=== PATIENT | male | born 1975 | race Caucasian/White ===

== ENCOUNTER → 2021-10-10 | Outpatient (CLI) | payer OTHER ==
[2021-10-10 14:54] LABS: Basophils # (A) 0.03 X 10*3/uL (0.00-0.10); Basophils % (A) 0.3 %; Eosinophils # (A) 0.12 X 10*3/uL (0.04-0.35); HCT 46.2 % (39.6-50.0); HGB 15.3 g/dL (13.0-17.0); Immature Grans, Automated 0.4 %; Lymphocytes # (A) 1.51 X 10*3/uL (0.90-5.00); MCH 29.3 pg (27.0-32.0); MCHC 33.1 g/dL (32.0-37.0); MCV 88.5 fL (80.0-97.0); Mean Platelet Volume 9.1 fL (9.5-12.2); Monocytes # (A) 0.92 X 10*3/uL (0.20-1.00); Monocytes % (A) 7.9 %; NRBC Per 100 WBC 0 /100 WBCS (0.0-0.0); Neutrophils % (A) 77.4 %; Platelet Count 277 X 10*3/uL (140-440); RBC 5.22 X 10*6/uL (4.40-5.60); RDW 13.2 % (11.5-14.5); WBC 11.63 X 10*3/uL (4.50-10.00)
== END | disposition home or self-care (01) ==
LOC: LABPAT 10:23
PROVIDERS: ATTEND Surgery
DX: Z01.812 Encounter for preprocedural laboratory examination (principal); K57.33 Diverticulitis of large intestine without perforation or abscess with bleeding
CPT/HCPCS: 36415; 85025

== ENCOUNTER 2021-10-16 08:11 | Day surgery (SDC) | payer OTHER ==
[2021-10-14 12:14] VITALS: BMI 20.7
[~2021-10-16 08:11] MED LIST: LACTATED RINGERS 1,000 ML IV SCH; LIDOCAINE 1% (10MG/ML) FOR IV START INTRADERMA PRN; MIDAZOLAM 2 MG/2 ML VIAL IV PRN
[2021-10-16 09:30] VITALS: RESP 16; TEMP 97.5
[2021-10-16] MEDS ORDERED: PROPOFOL 10 MG/ML 20 ML VIAL IV ONE (10:02)
--- NOTE | 2021-10-16 10:02 | P.GSHP ---
History of Present Illness H&P Date: 10/16/21 Chief Complaint: History of perforated diverticulitis This a 46-year-old male who presents today for colonoscopy. Patient's. History of diverticulitis with abscess. He is scheduled undergo low anterior section tomorrow. Past Medical History Past Medical History: Musculoskeletal Disorder Additional Past Medical History / Comment(s): recent adm. for diverticulitis- finished A/B's, has herniated lumbar disc History of Any Multi-Drug Resistant Organisms: None Reported Past Surgical History: No Surgical Hx Reported Past Anesthesia/Blood Transfusion Reactions: No Reported Reaction Smoking Status: Current every day smoker - Past Family History Mother Family Medical History: No Reported History Medications and Allergies Home Medications Medication Instructions Recorded Confirmed Type No Known Home Medications 10/14/21 10/16/21 History Allergies Allergy/AdvReac Type Severity Reaction Status Date / Time No Known Allergies Allergy Verified 10/16/21 09:18 Surgical - Exam Vital Signs Temp Pulse Resp BP Pulse Ox 97.5 F L 99 16 142/76 98 10/16/21 09:24 10/16/21 09:24 10/16/21 09:24 10/16/21 09:24 10/16/21 09:24 - General well developed, well nourished, no distress - Eyes PERRL - ENT normal pinna - Neck no masses - Respiratory normal expansion - Cardiovascular Rhythm: regular - Abdomen Abdomen: soft, non tender Assessment and Plan Assessment: History of perforated diverticula is. We'll perform colonoscopy.
--- NOTE | 2021-10-16 10:15 | P.OP ---
Date of Procedure: 10/16/21 Preoperative Diagnosis: History of perforated diverticulitis Postoperative Diagnosis: Diverticulosis Rectal polyp Possible stricture sigmoid colon Procedure(s) Performed: colonoscopy Anesthesia: MAC Surgeon: Horacio Hutchinson Pathology: other (Rectal polyp) Condition: stable Disposition: PACU Description of Procedure: The patient's placed on the endoscopy table lateral position. He received IV sedation. Digital rectal exam was performed. There were some minimal internal hemorrhoids. Flexible colonoscope was then placed patient anus passed with colon. In the sigmoid colon the colon appeared to be very stiff. The colon could not be expanded with of air. This is presumed the area the previous diverticulitis. Scope was not advanced due to possible injury of the colon. Scope was withdrawn. The rectum there was a small polyp seen was removed with a cold forcep. Scope was withdrawn for patient.
[2021-10-16 10:33] VITALS: BP 129/78; PULSE 76
== END 2021-10-16 10:59 | disposition home or self-care (01) ==
LOC: ORWHC2ENDO 08:11
PROVIDERS: ATTEND Surgery
DX: K62.1 Rectal polyp (principal); K64.8 Other hemorrhoids; K57.30 Diverticulosis of large intestine without perforation or abscess without bleeding; Z87.19 Personal history of other diseases of the digestive system; F17.200 Nicotine dependence, unspecified, uncomplicated
CPT/HCPCS: 45380; 88305; J2704

== ENCOUNTER 2021-10-17 08:55 | Inpatient (IN) | payer OTHER ==
[2021-10-14 11:12] VITALS: BMI 20.7
[~2021-10-17 08:55] MED LIST changes: +ACETAMINOPHEN TAB 500 MG TAB PO PRN; +DEXAMETHASONE SOD PHOSPHATE 4 MG/ML 1 ML VIAL IV ONE; +HEPARIN SODIUM,PORCINE/PF 5,000 UNIT/0.5 ML SYRINGE SQ PRN; +HYDROmorphone 0.5 MG/0.5 ML SYRINGE IVP PRN; +ONDANSETRON 4 MG/2 ML VIAL IVP ONE; +metroNIDAZOLE-NS PMX 500 MG in SALINE 1 100ML.BAG IVPB PRN
[2021-10-17 09:40] LABS: Glucose,Whole Blood 62 mg/dL (75-99)
[2021-10-17 09:52] LABS: ALT 22 U/L (4-49); AST 28 U/L (17-59); African American GFR (CKD) >90 (>60 ml/min/1.73 sqM); Albumin 4.5 g/dL (3.5-5.0); Alkaline Phosphatase 54 U/L (38-126); Anion Gap 8 mmol/L; Blood Urea Nitrogen 7 mg/dL (9-20); Calcium 9.5 mg/dL (8.4-10.2); Carbon Dioxide 28 mmol/L (22-30); Chloride 103 mmol/L (98-107); Glucose 62 mg/dL (74-99); Non-African American GFR(CKD) >90 (>60 ml/min/1.73 sqM); Potassium 4.2 mmol/L (3.5-5.1); Sodium 139 mmol/L (137-145); Total Bilirubin 0.8 mg/dL (0.2-1.3); Total Protein 8.1 g/dL (6.3-8.2)
[2021-10-17] MEDS ORDERED: MIDAZOLAM 2 MG/2 ML VIAL IVP ONE (09:53)
--- NOTE | 2021-10-17 10:16 | P.ANPRN ---
Procedure Note - Anesthesia - Epidural/Spinal Epidural Continuous Time Out Performed: Yes Date of Procedure: 10/17/21 Procedure Start Time: 09:52 Procedure Stop Time: 10:02 Location of Patient: PreOp Indication: Acute Post-Operative Pain, Requested by Surgeon Sedation Type: Sedate with meaningful contact maintained Preparation: Sterile Dressing Number of Attempts: 1 Position: Sitting Catheter Depth at Skin (cm): 11 Catheter: Indwelling Needle Guage: 18 (20G catheter threaded through the needle) Injectate: Test Dose Lidocaine1.5% w/1:200,000 epi (2 cc) Narrative: NURIS at 4cms, catheter 11 cms Blood Aspirated: No Pain Paresthesia on Injection Noted: No Events: Uneventful and Well Tolerated
[2021-10-17] MEDS ORDERED: NALOXONE 0.4 MG/ML 1 ML VIAL IV PRN (10:17)
--- NOTE | 2021-10-17 10:40 | P.GSHP ---
History of Present Illness H&P Date: 10/17/21 Chief Complaint: History of diverticulitis This a 46-year-old male presents today for low anterior resection. Patient's previous history of diverticulitis with abscess. Patient aware the risks surgery including possible colostomy, wound infection and bleeding. Past Medical History Past Medical History: Musculoskeletal Disorder Additional Past Medical History / Comment(s): recent adm. for diverticulitis-fi nished A/B's, has herniated lumbar disc History of Any Multi-Drug Resistant Organisms: None Reported Past Surgical History: No Surgical Hx Reported Past Anesthesia/Blood Transfusion Reactions: No Reported Reaction Smoking Status: Current every day smoker - Past Family History Mother Family Medical History: No Reported History Medications and Allergies Home Medications Medication Instructions Recorded Confirmed Type No Known Home Medications 10/14/21 10/16/21 History Allergies Allergy/AdvReac Type Severity Reaction Status Date / Time No Known Allergies Allergy Verified 10/17/21 09:13 Surgical - Exam Vital Signs Temp Pulse Resp BP Pulse Ox 97.8 F 85 20 131/80 100 10/17/21 09:17 10/17/21 09:17 10/17/21 09:17 10/17/21 09:17 10/17/21 09:17 - General well developed, well nourished, no distress - Eyes PERRL - ENT normal pinna - Neck no masses - Respiratory normal expansion - Cardiovascular Rhythm: regular - Abdomen Abdomen: soft, non tender Results - Labs 10/17/21 09:30 Abnormal Lab Results - Last 24 Hours (Table) 10/17/21 10/17/21 Range/Units 09:30 09:35 BUN 7 L (9-20) mg/dL Glucose 62 L (74-99) mg/dL POC Glucose (mg/dL) 62 L (75-99) mg/dL Diabetes panel 10/17/21 Range/Units 09:30 Sodium 139 (137-145) mmol/L Potassium 4.2 (3.5-5.1) mmol/L Chloride 103 (98-107) mmol/L Carbon Dioxide 28 (22-30) mmol/L BUN 7 L (9-20) mg/dL Creatinine 0.80 (0.66-1.25) mg/dL Glucose 62 L (74-99) mg/dL Calcium 9.5 (8.4-10.2) mg/dL AST 28 (17-59) U/L ALT 22 (4-49) U/L Alkaline Phosphatase 54 (38-126) U/L Total Protein 8.1 (6.3-8.2) g/dL Albumin 4.5 (3.5-5.0) g/dL Calcium panel 10/17/21 Range/Units 09:30 Calcium 9.5 (8.4-10.2) mg/dL Albumin 4.5 (3.5-5.0) g/dL Pituitary panel 10/17/21 Range/Units 09:30 Sodium 139 (137-145) mmol/L Potassium 4.2 (3.5-5.1) mmol/L Chloride 103 (98-107) mmol/L Carbon Dioxide 28 (22-30) mmol/L BUN 7 L (9-20) mg/dL Creatinine 0.80 (0.66-1.25) mg/dL Glucose 62 L (74-99) mg/dL Calcium 9.5 (8.4-10.2) mg/dL Adrenal panel 10/17/21 Range/Units 09:30 Sodium 139 (137-145) mmol/L Potassium 4.2 (3.5-5.1) mmol/L Chloride 103 (98-107) mmol/L Carbon Dioxide 28 (22-30) mmol/L BUN 7 L (9-20) mg/dL Creatinine 0.80 (0.66-1.25) mg/dL Glucose 62 L (74-99) mg/dL Calcium 9.5 (8.4-10.2) mg/dL Total Bilirubin 0.8 (0.2-1.3) mg/dL AST 28 (17-59) U/L ALT 22 (4-49) U/L Alkaline Phosphatase 54 (38-126) U/L Total Protein 8.1 (6.3-8.2) g/dL Albumin 4.5 (3.5-5.0) g/dL Assessment and Plan Assessment: History of diverticulitis. We'll perform a low anterior resection. Patient has been given information on smoking cessation prior to surgery.
[2021-10-17] MEDS ORDERED: LIDOCAINE 1% INJ 10MG/ML (20 ML MDV) ONE (11:03)
[2021-10-17] MEDS ORDERED: fentaNYL (PF) 50 MCG/ML 2 ML AMP ONE (11:03)
[2021-10-17] MEDS ORDERED: PROPOFOL 10 MG/ML 20 ML VIAL IV ONE (11:03)
[2021-10-17] MEDS ORDERED: MIDAZOLAM 2 MG/2 ML VIAL ONE (11:03)
[2021-10-17] MEDS ORDERED: ROCURONIUM 10 MG/ML (5 ML VIAL) IV ONE (11:03)
[2021-10-17] MEDS ORDERED: HYDROmorphone (PF) 1 MG/ML ONE (11:03)
[2021-10-17] MEDS ORDERED: GLYCOPYRROLATE 0.2 MG/ML 2 ML VIAL ONE (11:03)
[2021-10-17] MEDS ORDERED: SUCCINYLCHOLINE CHLORIDE 100 MG/5 ML SYR IV ONE (11:03)
[2021-10-17] MEDS ORDERED: NEOSTIGMINE 1 MG/ML 10 ML VIAL ONE (11:03)
[2021-10-17] MEDS ORDERED: LACTATED RINGERS 1,000 ML IV ONE (11:55)
[2021-10-17] MEDS: ROPIVACAINE 250 MG, HYDROMORPHONE (PF) 5 MG in SODIUM CHLORIDE 0.9% 200 ML EPIDURAL PRN (12:30)
[2021-10-17] MEDS ORDERED: BENZOCAINE/MENTHOL LOZENG 1 EACH LOZENGE MUCOUS MEM PRN (12:31)
[2021-10-17] MEDS ORDERED: KETOROLAC 15 MG/ML 1 ML VIAL IVP PRN (12:31)
[2021-10-17] MEDS ORDERED: ONDANSETRON 4 MG/2 ML VIAL IVP PRN (12:31)
--- NOTE | 2021-10-17 12:31 | P.OP ---
Date of Procedure: 10/17/21 Preoperative Diagnosis: Diverticulitis Postoperative Diagnosis: Diverticulitis Procedure(s) Performed: Low anterior resection Anesthesia: CL[place] Surgeon: Horacio Hutchinson Estimated Blood Loss (ml): 25 Pathology: other (Sigmoid colon) Condition: stable Disposition: PACU Description of Procedure: The patient's placed on the operative table in the supine position. He received general endotracheal tube anesthesia. He was then placed in dorsal 5 position. His abdomen was prepped and draped in sterile fashion. A low midline skin incision was made. The abdomen was entered through the midline. The Bookwalter tract with wound. As explore. The sigmoid colon appeared to be obviously inflamed. The adhesions to the; lysed using sharp dissection. The white line Toldt was divided. The sigmoid colon and left colon were mobilized. At this point an enterotomy was made in the proximal sigmoid colon. The anvil for the EEA stapler was placed into the colon. The colon was then transected and then the cyst spike for the anvil was driven through the proximal staple line. The e nterotomy is closed with 3-0 GI silk suture on the specimen side. Then using the Enseal device the mesentery of the bowel was divided. The rectum was then transected with the contour stapler. Using the EEA stapler the colorectal anastomosis was created. The 25 mm EEA stapler was used. Using a HIDA The anastomosis was checked under air insufflation via a rigid sigmoidoscope. There is no evidence of leakage. The abdomen was irrigated. The fascia was closed with looped #1 PDS suture. Skin was closed leonel.
--- NOTE | 2021-10-17 15:56 | CONS ---
CONSULTATION DATE OF SERVICE: 10/17/2021 REASON FOR CONSULTATION: Advice regarding diverticulitis and other issues, requested by Dr. Hutchinson. HISTORY OF PRESENT ILLNESS: This 46-year-old gentleman with a past medical history of diverticulitis, diverticular abscess, underwent low anterior resection. The patient tolerated the procedure well. The patient had some mild hypoglycemia preoperatively. There is no history of any fever, rigor, chills, headache, loss of consciousness, seizures. Minimal postoperative abdominal pain is reported. PAST MEDICAL HISTORY: Diverticulitis, diverticular abscess. MEDICATIONS: None. ALLERGIES: NONE. FAMILY HISTORY: No history of heart disease or strokes in the family. SOCIAL HISTORY: Occasional alcohol. History of smoking. History of THC. REVIEW OF SYSTEMS: Fourteen-point review of systems negative except as mentioned earlier. PHYSICAL EXAMINATION: Pulse is 67, blood pressure 128/60, respirations 16, temperature normal. HEENT: Conjunctivae normal. Oral mucosa moist. NECK: No jugular venous distention. CARDIOVASCULAR: S1, S2 muffled. RESPIRATION: Breath sounds diminished at the bases. A few scattered rhonchi. ABDOMEN: Soft. Status post surgery. LEGS: No edema. No swelling. NERVOUS SYSTEM: No focal deficit. SKIN: No ulcer, rash, bleeding. JOINTS: No active deforming arthropathy. LABS: Reviewed. ASSESSMENT: 1. Status post low anterior resection for diverticulitis. 2. Mild hypoglycemia. 3. History of nicotine dependence. RECOMMENDATIONS AND DISCUSSION: In this 46-year-old gentleman who presented after surgery, at this time I recommend to continue current medications. DVT prophylaxis. Incentive spirometry. Pain management. Proton pump inhibitors. I would also recommend continuing with D5 half- normal and repeat labs in the morning. Will follow the patient closely with you. Thank you, Dr. Hutchinson. MMODL / IJN: [id number] /
[2021-10-17] MEDS: NICOTINE 21MG/24HR PATCH TRANSDERM SCH (17:43)
[2021-10-17] MEDS: D5-0.45% NACL WITH KCL 20MEQ/L 1,000 ML IV SCH (17:43)
[2021-10-17] MEDS: HEPARIN SODIUM,PORCINE/PF 5,000 UNIT/0.5 ML SYRINGE SQ SCH (17:43)
[2021-10-17] MEDS: FAMOTIDINE 20 MG/2 ML VIAL IV SCH (21:51)
[2021-10-17] MEDS: TEMAZEPAM 15 MG CAP PO SCH (21:52)
[2021-10-18] MEDS: D5-0.45% NACL WITH KCL 20MEQ/L 1,000 ML IV SCH ×4 (02:40→23:21)
[2021-10-18] MEDS: HEPARIN SODIUM,PORCINE/PF 5,000 UNIT/0.5 ML SYRINGE SQ SCH ×4 (02:41→23:20)
[2021-10-18] MEDS: FAMOTIDINE 20 MG/2 ML VIAL IV SCH ×2 (08:06→20:47)
[2021-10-18] MEDS: ALVIMOPAN 12 MG CAPSULE PO SCH ×2 (08:06→20:46)
[2021-10-18] MEDS: NICOTINE 21MG/24HR PATCH TRANSDERM SCH (08:06)
[2021-10-18 12:22] LABS: Basophils # (A) 0.02 X 10*3/uL (0.00-0.10); Basophils % (A) 0.2 %; Eosinophils # (A) 0.02 X 10*3/uL (0.04-0.35); Eosinophils % (A) 0.2 %; HCT 44.9 % (39.6-50.0); HGB 14.6 g/dL (13.0-17.0); Immature Grans, Automated 0.3 %; Lymphocytes # (A) 1.59 X 10*3/uL (0.90-5.00); Lymphocytes % (A) 12.2 %; MCH 29.6 pg (27.0-32.0); MCHC 32.5 g/dL (32.0-37.0); MCV 90.9 fL (80.0-97.0); Mean Platelet Volume 9.4 fL (9.5-12.2); Monocytes # (A) 0.86 X 10*3/uL (0.20-1.00); Monocytes % (A) 6.6 %; NRBC Per 100 WBC 0 /100 WBCS (0.0-0.0); Neutrophils # (A) 10.51 X 10*3/uL (1.80-7.70); Neutrophils % (A) 80.5 %; Platelet Count 279 X 10*3/uL (140-440); RBC 4.94 X 10*6/uL (4.40-5.60); RDW 13.4 % (11.5-14.5); WBC 13.04 X 10*3/uL (4.50-10.00)
[2021-10-18 12:29] LABS: African American GFR (CKD) 130.5 (60.0-200.0); Anion Gap 12.7 mmol/L (10.00-18.00); BUN/Creat Ratio 7.32 Ratio (12.00-20.00); Blood Urea Nitrogen 5.1 mg/dL (9.0-27.0); Carbon Dioxide 25.7 mmol/L (20.0-27.5); Non-African American GFR(CKD) 112.6 (60.0-200.0); Potassium 4.3 mmol/L (3.5-5.5)
--- NOTE | 2021-10-18 12:56 | P.PN ---
Subjective Progress Note Date: 10/18/21 CHIEF COMPLAINT: Sigmoid diverticulitis HISTORY OF PRESENT ILLNESS: The patient is a 46-year-old male admitted secondary to sigmoid diverticulitis. He is status post low anterior resection 10/17/2021. No complaints. "I'm afraid to drink too much and have to run to the bathroom." No flatus. No bowel movements. SCDs are present. Pain is well controlled. He has a meza and epidural. ROS: No reports of nausea and vomiting. No bowel movements. No fevers or chills. No new chest pain. No productive sputum PHYSICAL EXAM: VITAL SIGNS: Reviewed CONSTITUTIONAL: Well developed and in no acute distress. EYES: Conjuctivae without sclera icterus. Extraocular movements grossly intact. HEAD, EARS, NOSE, THROAT: Moist buccal mucosa. Head is atraumatic, normocephalic. Hears conversational speech. No nasal drainage. RESPIRATORY: Non-labored respirations and equal bilateral excursions. CARDIOVASCULAR: Palpable 2+ radial pulses. ABDOMEN: Dressing intact. MUSCULOSKELETAL: No gross deformity of the lower extremities noted. No clubbing. No cyanosis. SKIN: Good skin turgor. Well perfused. NEUROLOGIC: Cranial nerves II through XII grossly intact. No focal or lateralizing signs. PSYCH: Appropriate affect. Alert and oriented to person, place and time. CLINICAL LABS: Reviewed. WBC elevated over 13,000, expected postsurgical response. ASSESSMENT: 1. Sigmoid diverticulitis PLAN: 1. Pending bowel function 2. Continue epidural 3. Ambulation encouraged. 4. Advance diet pending bowel function. Objective - Vital Signs Vital signs: Vital Signs Temp 97.7 F 10/18/21 08:00 Pulse 54 L 10/18/21 08:00 Resp 18 10/18/21 08:00 BP 118/73 10/18/21 08:00 Pulse Ox 100 10/18/21 08:00 Intake & Output 10/17/21 10/18/21 10/18/21 18:59 06:59 18:59 Intake Total 1613.767 Output Total 185 2750 Balance 1428.767 -2750 Weight 61.7 kg Intake: IV 1350 Intake, IV Titration 263.767 Amount D5-0.45% NaCl with KCl 250 20Meq/l 1,000 ml @ 125 mls/hr IV .Q8H ROSIBEL Rx#: [id number] Ropivacaine 250 mg 13.767 Hydromorphone (Pf) 5 mg In Sodium Chloride 0.9% 200 ml @ Per Protocol EPIDURAL .Q0M PRN Rx#: [id number] Output: Urine 160 2750 Estimated Blood Loss 25 Other: Voiding Method Indwelling Catheter Indwelling Catheter - Labs CBC & Chem 7: 10/18/21 09:00 10/18/21 09:00 Labs: Abnormal Lab Results - Last 24 Hours (Table) 10/18/21 10/18/21 Range/Units 09:00 09:00 WBC 13.04 H (4.50-10.00) X 10*3/uL MPV 9.4 L (9.5-12.2) fL Neutrophils # 10.51 H (1.80-7.70) X 10*3/uL Eosinophils # 0.02 L (0.04-0.35) X 10*3/uL BUN 5.1 L (9.0-27.0) mg/dL BUN/Creatinine Ratio 7.32 L (12.00-20.00) Ratio Glucose 117 H (70-110) mg/dL Assessment and Plan (1) Status post colectomy Current Visit: Yes Status: Acute Code(s): Z90.49 - ACQUIRED ABSENCE OF OTHER SPECIFIED PARTS OF DIGESTIVE TRACT SNOMED Code(s): 597674809 (2) Diverticulitis of intestine with abscess Current Visit: No Status: Acute Code(s): K57.80 - DVTRCLI OF INTEST, PART UNSP, W PERF AND ABSCESS W/O BLEED SNOMED Code(s): 017983407
[2021-10-18] MEDS: ROPIVACAINE 250 MG, HYDROMORPHONE (PF) 5 MG in SODIUM CHLORIDE 0.9% 200 ML EPIDURAL PRN (14:16)
--- NOTE | 2021-10-18 16:52 | PN ---
PROGRESS NOTE DATE OF SERVICE: 10/18/2021 This 46-year-old gentleman who was admitted after low anterior resection is improving significantly. No chest pain. No palpitations. No fever. Patient still has epidural as well as Gutierrez catheter. PHYSICAL EXAMINATION: Alert and oriented x3. Pulse 52, blood pressure 120/72, respiration 18. CHEST: Clear to auscultation. CARDIOVASCULAR: S1, S2 muffled. ABDOMEN: Soft. Status post surgery. LABS: WBC 13.4. Other labs are reviewed. ASSESSMENT: 1. Status post low anterior resection for diverticulitis. 2. Mild hypoglycemia, improved. 3. History of nicotine dependence. RECOMMENDATIONS AND DISCUSSION: I recommend to continue current medications, continue with the monitoring, symptomatic treatment. Otherwise, closely follow with Surgery. Further recommendations to follow. MMODL / IJN: [id number] /
[2021-10-18] MEDS: TEMAZEPAM 15 MG CAP PO SCH (20:47)
--- NOTE | 2021-10-18 20:58 | P.PN ---
Progress Note - Text 10/18/21 1813 46-year-old male status post low anterior resection by Dr. Hutchinson. Patient has an epidural catheter with the solution running at 8 mL an hour with a VAS of 0 at rest. No motor or sensory deficit noted. Plan to continue epidural infusion
[2021-10-19] MEDS: D5-0.45% NACL WITH KCL 20MEQ/L 1,000 ML IV SCH ×3 (05:52→21:34)
[2021-10-19] MEDS: ALVIMOPAN 12 MG CAPSULE PO SCH ×2 (07:20→21:35)
[2021-10-19] MEDS: HEPARIN SODIUM,PORCINE/PF 5,000 UNIT/0.5 ML SYRINGE SQ SCH ×2 (07:20→21:35)
[2021-10-19] MEDS: NICOTINE 21MG/24HR PATCH TRANSDERM SCH (07:20)
[2021-10-19] MEDS: FAMOTIDINE 20 MG/2 ML VIAL IV SCH ×2 (08:45→21:35)
[2021-10-19] MEDS ORDERED: TAMSULOSIN 0.4 MG CAP.ER.24H PO STA (12:17)
--- NOTE | 2021-10-19 12:20 | P.PN ---
Subjective Progress Note Date: 10/19/21 Principal diagnosis: Reviewed with patient and family pain options. Scheduled non-narcotic pain management initiated with toradol and tylenol. Scheduled simethicone ordered for gas. Ambulation encouraged. May remove meza and epidural per patient request. Repeat CBC for am. Flomax for urinary retention prevention started. Disposition in 48 hrs. Continue clear liquid diet. Patient does report flatus and pending bowel movement. He had pain after coughing today. Discharge plannig reviewed including lifting restrictions for 4 weeks, avoiding seeds, increased protein intake for optimal recovery and use of anti-microbial soap. Objective - Vital Signs Vital signs: Vital Signs Temp 98.2 F 10/19/21 07:57 Pulse 72 10/19/21 07:57 Resp 18 10/19/21 07:57 BP 105/58 10/19/21 07:57 Pulse Ox 95 10/19/21 07:57 Intake & Output 10/18/21 10/19/21 10/19/21 18:59 06:59 18:59 Intake Total 164.4 Output Total 1800 1800 Balance -1635.6 -1800 Intake: Intake, IV Titration 164.4 Amount Ropivacaine 250 mg 164.4 Hydromorphone (Pf) 5 mg In Sodium Chloride 0.9% 200 ml @ Per Protocol EPIDURAL .Q0M PRN Rx#: [id number] Output: Urine 1800 1800 Other: Voiding Method Indwelling Catheter Indwelling Catheter Indwelling Catheter - Labs CBC & Chem 7: 10/18/21 09:00 10/18/21 09:00 Labs: Abnormal Lab Results - Last 24 Hours (Table) 10/18/21 10/18/21 Range/Units 09:00 09:00 WBC 13.04 H (4.50-10.00) X 10*3/uL MPV 9.4 L (9.5-12.2) fL Neutrophils # 10.51 H (1.80-7.70) X 10*3/uL Eosinophils # 0.02 L (0.04-0.35) X 10*3/uL BUN 5.1 L (9.0-27.0) mg/dL BUN/Creatinine Ratio 7.32 L (12.00-20.00) Ratio Glucose 117 H (70-110) mg/dL Assessment and Plan (1) Status post colectomy Current Visit: Yes Status: Acute Code(s): Z90.49 - ACQUIRED ABSENCE OF OTHER SPECIFIED PARTS OF DIGESTIVE TRACT SNOMED Code(s): 323781044 (2) Diverticulitis of intestine with abscess Current Visit: No Status: Acute Code(s): K57.80 - DVTRCLI OF INTEST, PART UNSP, W PERF AND ABSCESS W/O BLEED SNOMED Code(s): 432773303
[2021-10-19] MEDS: ACETAMINOPHEN TAB 500 MG TAB PO SCH ×3 (13:24→23:36)
[2021-10-19] MEDS: KETOROLAC 15 MG/ML 1 ML VIAL IVP SCH ×3 (13:25→23:36)
[2021-10-19] MEDS: SIMETHICONE 40 MG/0.6 ML DROPS 2,000 MG/30 ML BOTTLE PO SCH ×3 (13:25→21:35)
[2021-10-19] MEDS: ROPIVACAINE 250 MG, HYDROMORPHONE (PF) 5 MG in SODIUM CHLORIDE 0.9% 200 ML EPIDURAL PRN (16:32)
--- NOTE | 2021-10-19 17:55 | PN ---
PROGRESS NOTE DATE OF SERVICE: 10/19/2021 This 46-year-old gentleman who was admitted after low anterior resection is being closely monitored. Patient is on an epidural and Gutierrez catheter. No chest pain. No palpitations. No fever. PHYSICAL EXAMINATION: Pulse is 72, blood pressure 101/58, respiration 18. CHEST: Clear to auscultation. CARDIOVASCULAR: S1, S2 muffled. ABDOMEN: Soft. Status post surgery. NERVOUS SYSTEM: No focal deficit. LABS: Reviewed. ASSESSMENT: 1. Status post low anterior resection for diverticulitis. 2. Mild hypoglycemia, improved. 3. History of nicotine dependence. RECOMMENDATIONS AND DISCUSSION: I recommend to continue current medications, continue with the monitoring, symptomatic treatment. Incentive spirometry. DVT prophylaxis. Closely follow with Surgery. Further recommendations to follow. MMODL / IJN: [id number] /
--- NOTE | 2021-10-19 20:20 | P.PN ---
Progress Note - Text 10/19/21 811am 46-year-old male status post low anterior resection by Dr. Hutchinson. Patient has an epidural catheter was solution running at 8 mL an hour with a VAS of 2 at rest and 5 on movement. No sensory or motor deficits, patient ambulated well during the day plan to continue the epidural infusion and DC'd in the morning
[2021-10-19] MEDS: TEMAZEPAM 15 MG CAP PO SCH (21:35)
[2021-10-20] MEDS: KETOROLAC 15 MG/ML 1 ML VIAL IVP SCH ×4 (05:17→23:36)
[2021-10-20] MEDS: D5-0.45% NACL WITH KCL 20MEQ/L 1,000 ML IV SCH (05:18)
[2021-10-20] MEDS: ACETAMINOPHEN TAB 500 MG TAB PO SCH ×4 (05:18→23:36)
[2021-10-20 08:41] LABS: Basophils # (A) 0.03 X 10*3/uL (0.00-0.10); Basophils % (A) 0.6 %; Eosinophils # (A) 0.12 X 10*3/uL (0.04-0.35); Eosinophils % (A) 2.3 %; HCT 41.4 % (39.6-50.0); HGB 13.4 g/dL (13.0-17.0); Immature Grans, Automated 0.6 %; Lymphocytes # (A) 1.32 X 10*3/uL (0.90-5.00); Lymphocytes % (A) 25.7 %; MCH 29.5 pg (27.0-32.0); MCHC 32.4 g/dL (32.0-37.0); MCV 91.2 fL (80.0-97.0); Mean Platelet Volume 9.5 fL (9.5-12.2); Monocytes # (A) 0.47 X 10*3/uL (0.20-1.00); Monocytes % (A) 9.2 %; NRBC Per 100 WBC 0 /100 WBCS (0.0-0.0); Neutrophils # (A) 3.16 X 10*3/uL (1.80-7.70); Neutrophils % (A) 61.6 %; Platelet Count 233 X 10*3/uL (140-440); RBC 4.54 X 10*6/uL (4.40-5.60); RDW 13.3 % (11.5-14.5); WBC 5.13 X 10*3/uL (4.50-10.00)
[2021-10-20] MEDS: SIMETHICONE 40 MG/0.6 ML DROPS 2,000 MG/30 ML BOTTLE PO SCH ×4 (09:40→21:58)
[2021-10-20] MEDS: TAMSULOSIN 0.4 MG CAP.ER.24H PO SCH (09:41)
[2021-10-20] MEDS: NICOTINE 21MG/24HR PATCH TRANSDERM SCH (09:41)
[2021-10-20] MEDS: ALVIMOPAN 12 MG CAPSULE PO SCH ×2 (09:41→21:57)
[2021-10-20] MEDS: HEPARIN SODIUM,PORCINE/PF 5,000 UNIT/0.5 ML SYRINGE SQ SCH ×2 (09:41→21:57)
[2021-10-20] MEDS: FAMOTIDINE 20 MG/2 ML VIAL IV SCH ×2 (10:42→21:57)
--- NOTE | 2021-10-20 13:55 | P.PN ---
Subjective Progress Note Date: 10/20/21 CHIEF COMPLAINT: Diverticulitis HISTORY OF PRESENT ILLNESS: Postop day #3 status post lower anterior resection. Patient's epidural discontinued today. Gutierrez catheter discontinued yesterday. Patient reports that he is urinating easier. He has had flatus. No bowel movement. Reports that his pain as tolerated. Currently tolerating a clear liquid diet. Afebrile. WBC has normalized from 13.04-5.3 hemoglobin 13.4 platelets 233 PHYSICAL EXAM: VITAL SIGNS: Reviewed GENERAL: Well-developed in no acute distress. HEENT: No sclera icterus. Extraocular movements grossly intact. Moist buccal mucosa. Head is atraumatic, normocephalic. Hears conversational speech. No nasal drainage. NECK: Supple without lymphadenopathy. CHEST: Non-labored respirations and equal bilateral excursions. CARDIOVASCULAR: Palpable 2+ radial pulses. ABDOMEN: Soft. Nondistended. Nontender. Incisional dressing small area of blood saturation noted in the middle of the dressing MUSCULOSKELETAL: No clubbing or cyanosis. NEUROLOGIC: No focal or lateralizing signs. Cranial nerves II through XII grossly intact. PSYCH: Appropriate affect. Alert and oriented to person, place and time. SKIN: Well perfused. Good skin turgor. ASSESSMENT: 1. Diverticulitis Status post lower anterior resection PLAN: -Advance diet to full liquids -Encourage patient to ambulate -Continue current pain medications -Discontinue IV fluid -Continue the entereg -GI prophylaxis Pepcid and DVT prophylaxis subcu heparin -Anticipate discharge possibly tomorrow if patient has BM Physician Air Conditioning Specialist note has been reviewed by physician. Signing provider agrees with the documented findings, assessment, and plan of care. Objective - Vital Signs Vital signs: Vital Signs Temp 97.7 F 10/20/21 07:54 Pulse 56 L 10/20/21 07:54 Resp 18 10/20/21 07:54 BP 130/75 10/20/21 07:54 Pulse Ox 98 10/20/21 07:54 Intake & Output 10/19/21 10/20/21 10/20/21 18:59 06:59 18:59 Intake Total 210.133 Output Total 650 Balance -439.867 Intake: Intake, IV Titration 210.133 Amount Ropivacaine 250 mg 210.133 Hydromorphone (Pf) 5 mg In Sodium Chloride 0.9% 200 ml @ Per Protocol EPIDURAL .Q0M PRN Rx#: [id number] Output: Urine 650 Other: Voiding Method Indwelling Catheter Toilet Toilet Urinal # Voids 2 - Labs CBC & Chem 7: 10/20/21 03:51 10/18/21 09:00
--- NOTE | 2021-10-20 15:28 | PN ---
PROGRESS NOTE DATE OF SERVICE: 10/20/2021 This 46-year-old gentleman was admitted after low anterior resection for diverticulitis is improving significantly. No chest pain. No palpitations. No fever. Repeat urine and Gutierrez catheter has been removed. PHYSICAL EXAMINATION: Pulse is 56, blood pressure ntd respiration 18. Chest: Clear to auscultation. Cardiovascular: S1, S2 normal. Abdomen: Soft. Status post surgery. Nervous system: No focal deficits. LABS: CBC reviewed, normal. Other labs are reviewed. ASSESSMENT: 1. Status post low anterior resection for diverticulitis. 2. Mild hypoglycemia, improved. 3. History of nicotine dependence. RECOMMENDATIONS AND DISCUSSION: Recommend to continue current management and symptomatic treatment. Diet per surgery. Repeat labs and closely monitor. Further recommendations to follow. Incentive spirometry. DVT prophylaxis. MMODL / IJN: [id number] / MTDD
[2021-10-20] MEDS: TEMAZEPAM 15 MG CAP PO SCH (21:57)
[2021-10-21] MEDS: ACETAMINOPHEN TAB 500 MG TAB PO SCH ×2 (05:34→12:54)
[2021-10-21] MEDS: KETOROLAC 15 MG/ML 1 ML VIAL IVP SCH ×2 (05:35→12:55)
[2021-10-21 07:12] VITALS: BP 124/74; PULSE 65; RESP 18; TEMP 97.9
[2021-10-21] MEDS: NICOTINE 21MG/24HR PATCH TRANSDERM SCH (09:32)
[2021-10-21] MEDS: HEPARIN SODIUM,PORCINE/PF 5,000 UNIT/0.5 ML SYRINGE SQ SCH (09:32)
[2021-10-21] MEDS: SIMETHICONE 40 MG/0.6 ML DROPS 2,000 MG/30 ML BOTTLE PO SCH ×2 (09:33→12:55)
[2021-10-21] MEDS: TAMSULOSIN 0.4 MG CAP.ER.24H PO SCH (09:33)
[2021-10-21] MEDS: FAMOTIDINE 20 MG/2 ML VIAL IV SCH (09:33)
--- NOTE | 2021-10-21 12:26 | P.DS ---
Providers Date of admission: 10/17/21 08:55 Expected date of discharge: 10/21/21 Attending physician: Horacio Hutchinson Consults: 10/17/21 12:31 Consult Physician Routine Consulting Provider: Saba Heller Consult Reason/Comments: Management Do you want consulting provider notified?: Yes Primary care physician: Stated None Hospital Course: Discharge diagnosis 1. Diverticulitis Status post lower anterior resection Hospital course This is a 46-year-old male with known history of diverticulitis with abscess. He is status post lower anterior resection. He tolerated surgery well. His pain is controlled. He is up and ambulating. He is tolerating diet. He is afebrile. Incision site clean dry and intact He is stable for discharge. Please refer to chart for any further details. Physician Assistant Softball Coach note has been reviewed by physician. Signing provider agrees with the documented findings, assessment, and plan of care. Patient Condition at Discharge: Stable Plan - Discharge Summary Discharge Rx Participant: No New Discharge Prescriptions: New Acetaminophen Tab [Tylenol] 1,000 mg PO Q6HR PRN #30 tablet PRN Reason: Pain Simethicone 40 mg/0.6 ml Drops [Mylicon Drops] 40 mg PO QID ml Ibuprofen [Motrin] 600 mg PO Q8HR PRN #30 tab PRN Reason: Pain Discharge Medication List Acetaminophen Tab [Tylenol] 1,000 mg PO Q6HR PRN #30 tablet 10/21/21 [Rx] Ibuprofen [Motrin] 600 mg PO Q8HR PRN #30 tab 10/21/21 [Rx] Simethicone 40 mg/0.6 ml Drops [Mylicon Drops] 40 mg PO QID ml 10/21/21 [Rx] Follow up Appointment(s)/Referral(s): Horacio Hutchinson MD [STAFF PHYSICIAN] - 1 Week Activity/Diet/Wound Care/Special Instructions: No lifting over 10 pounds You may shower. No soaking or tub baths for 2 weeks Very light activity until you are reevaluated at your follow up appointment with your surgeon Advance diet as tolerated Discharge Disposition: HOME SELF-CARE
--- NOTE | 2021-10-21 14:15 | PN ---
PROGRESS NOTE DATE OF SERVICE: 10/21/2021 This 46-year-old gentleman who was admitted after low anterior resection is improving significantly. No chest pain. No palpitations. No fever. PHYSICAL EXAMINATION: Pulse is 65, blood pressure 124/74, respiration 18. CHEST: Clear to auscultation. CARDIOVASCULAR: S1, S2 muffled. ABDOMEN: Soft. Status post surgery. NERVOUS SYSTEM: No focal deficit. LABS: CBC within normal limits. Other labs are reviewed. ASSESSMENT: 1. Status post low anterior resection for diverticulitis. 2. Mild hypoglycemia, improved. 3. History of nicotine dependence. RECOMMENDATIONS AND DISCUSSION: I recommend to continue current medications, continue with the monitoring, symptomatic treatment. Otherwise, follow with primary physician after discharge. Rest of the recommendations per Surgery. MMODL / IJN: [id number] /
== END 2021-10-21 14:00 | disposition home or self-care (01) | DRG 331 ==
LOC: 2ORMAIN 08:55 → 4SSUR 15:21
PROVIDERS: ADMIT Surgery; ATTEND Surgery
PROC: 0DBN0ZZ Excision of Sigmoid Colon, Open Approach (ICD-10-PCS; principal; 2021-10-17 10:40)
DX: K57.20 Diverticulitis of large intestine with perforation and abscess without bleeding (principal); E16.2 Hypoglycemia, unspecified; F17.210 Nicotine dependence, cigarettes, uncomplicated; Z71.6 Tobacco abuse counseling
CPT/HCPCS: 80048; 80053; 85025; 86850; 86900; 86901; 88307

== ENCOUNTER 2022-10-15 09:34 | Day surgery (SDC) | payer BC, OTHER ==
[2022-10-15] MEDS ORDERED: LACTATED RINGERS 1,000 ML IV SCH (10:08)
[2022-10-15] MEDS ORDERED: LIDOCAINE 1% (10MG/ML) FOR IV START INTRADERMA PRN (10:08)
[2022-10-15 10:11] VITALS: TEMP 97.8
[2022-10-15] MEDS ORDERED: LIDOCAINE 2% INJ 20 MG/ML (2 ML VIAL) ONE (10:35)
[2022-10-15] MEDS ORDERED: PROPOFOL 10 MG/ML 20 ML VIAL IV ONE (10:35)
--- NOTE | 2022-10-15 10:52 | P.OP ---
Date of Procedure: 10/15/22 Preoperative Diagnosis: Screening colonoscopy Postoperative Diagnosis: Normal colonoscopy status post low anterior section Anesthesia: CLINTON Surgeon: Horacio Hutchinson Pathology: none sent Condition: stable Description of Procedure: The patient's placed on the endoscopy table in the lateral position. He received IV sedation. Digital rectal exam was performed. This revealed no abnormalities. The flexible colonoscope was then placed patient anus and passed throughout the entire colon. The patient had a previous low anterior section. The ileocecal valve as well as. The cecum, ascending and transverse colon appeared normal. The descending colon was normal. The colorectal anastomosis was visualized. This appeared normal. The rectum appeared normal. Scope withdrawn for patient.
[2022-10-15 11:10] VITALS: BP 101/66; PULSE 62; RESP 16
== END 2022-10-15 11:27 | disposition home or self-care (01) ==
LOC: ORWHC2ENDO 09:34
PROVIDERS: ATTEND Surgery
DX: Z12.11 Encounter for screening for malignant neoplasm of colon (principal); K57.32 Diverticulitis of large intestine without perforation or abscess without bleeding; F17.210 Nicotine dependence, cigarettes, uncomplicated; Z79.899 Other long term (current) drug therapy
CPT/HCPCS: 45378; J2704; J2001

== ENCOUNTER → 2025-01-12 | Outpatient (CLI) | payer BC ==
[2025-01-12 18:27] LABS: Basophils # (A) 0.04 X 10*3/uL (0.00-0.10); Basophils % (A) 0.7 %; Eosinophils % (A) 1.7 %; HCT 50.5 % (39.6-50.0); HGB 16.7 g/dL (13.0-17.0); Lymphocytes # (A) 1.72 X 10*3/uL (0.90-5.00); Lymphocytes % (A) 29.4 %; MCHC 33.1 g/dL (32.0-37.0); MCV 90.7 FL (80.0-97.0); Mean Platelet Volume 9.1 FL (9.5-12.2); Monocytes # (A) 0.59 X 10*3/uL (0.20-1.00); Monocytes % (A) 10.1 %; NRBC Per 100 WBC 0 X 10*3/uL (0.00-0.01); Neutrophils # (A) 3.38 X 10*3/uL (1.80-7.70); Neutrophils % (A) 57.8 %; Platelet Count 285 X 10*3/uL (140-440); RBC 5.57 X 10*6/uL (4.40-5.60); RDW 12.9 % (11.5-14.5); WBC 5.85 X 10*3/uL (4.50-10.00)
[2025-01-12 19:15] LABS: BUN/Creat Ratio 14.62 Ratio (12.00-20.00); Blood Urea Nitrogen 11.7 mg/dL (9.0-27.0); Calcium 9.2 mg/dL (8.7-10.3); Carbon Dioxide 23.8 mmol/L (21.6-31.8); Chloride 109 mmol/L (96-109); Glucose 86 mg/dL (70-110); Potassium 4.6 mmol/L (3.5-5.5); Sodium 147 mmol/L (135-145)
== END | disposition home or self-care (01) ==
LOC: LABWHC1 12:34
PROVIDERS: ATTEND Orthopaedic Surgery
DX: Z01.818 Encounter for other preprocedural examination (principal); M75.110 Incomplete rotator cuff tear or rupture of unspecified shoulder, not specified as traumatic
CPT/HCPCS: 36415; 80048; 85025; 93005

== ENCOUNTER 2025-02-02 06:00 | Day surgery (SDC) | payer BC ==
--- NOTE | 2025-02-01 08:22 | P.HPOR ---
History of Present Illness H&P Date: 02/01/25 Chief Complaint: Right shoulder pain The patient is a 49-year-old [id number] male who presents with a 3- month history of progressive right shoulder pain he notes it started after chopping wood with an ax when he felt a tear. He has tried medications and therapy without much relief. He is having pain with overhead activity and at night. Review of Systems Per HPI Past Medical History Past Medical History: GERD/Reflux Additional Past Medical History / Comment(s): Diverticulitis/bowel resection. rt shoulder pain History of Any Multi-Drug Resistant Organisms: None Reported Past Surgical History: Bowel Resection Additional Past Surgical History / Comment(s): Colonoscopy Past Anesthesia/Blood Transfusion Reactions: No Reported Reaction Additional Past Anesthesia/Blood Transfusion Reaction / Comment(s): Pt has never had a blood transfusion. Smoking Status: Current every day smoker - Past Family History Mother Family Medical History: No Reported History Medications and Allergies Home Medications Medication Instructions Recorded Confirmed Type Acetaminophen Tab [Tylenol] 1,000 mg PO Q6HR PRN #30 tablet 10/21/21 01/31/25 Rx Naproxen Sodium [Aleve] 220 mg PO Q6HR PRN 10/13/22 01/31/25 History Psyllium Husk (with Sugar) 575 gm PO QAM 10/13/22 01/31/25 History [Metamucil Powder] Allergies Allergy/AdvReac Type Severity Reaction Status Date / Time No Known Allergies Allergy Verified 01/31/25 11:28 Physical Examination - Shoulder right Tenderness with palpation: anterior, bicipital groove Pain: with abduction, with forward flexion ROM: abduction: 140 degrees ROM: internal rotation: mid lumbar ROM: external rotation: 60 degrees Crepitus with motion: Yes Tests: internal impingement tests: positive, external impingment tests: positive Results The patient is a well-developed well-nourished male approximately 5 foot 10, 151 pounds of mesomorphic habitus. HEENT exam is nonfocal, neck is supple. He is tender about the right shoulder anterior subacromial space and bicipital groove. Mild crepitus is noted. Impingement test, Neer test, and Speed test are positive. His distal neurovascular exam appears intact in the right upper extremity. - Diagnostic results Shoulder MRI: image reviewed (MRI of the right shoulder shows a superior labral tear with a moderate effusion. No definite full-thickness rotator cuff tear is noted.) Assessment and Plan Assessment: Right shoulder impingement/superior labral tear/proximal bicipital tendinosis Plan: I talked to the patient at length regarding his condition along with treatment options. At this point he is quite symptomatic despite conservative measures. After thorough discussion he opts to proceed with surgery. We will plan to proc eed with right shoulder arthroscopy with probable subacromial decompression along with rotator cuff debridement, possible biceps tenotomy versus tenodesis. Risks and benefits were discussed at length in layman's terms. We will likely perform that as an outpatient procedure.
[~2025-02-02 06:00] MED LIST changes: -ACETAMINOPHEN TAB 500 MG TAB PO PRN; -DEXAMETHASONE SOD PHOSPHATE 4 MG/ML 1 ML VIAL IV ONE; -HEPARIN SODIUM,PORCINE/PF 5,000 UNIT/0.5 ML SYRINGE SQ PRN; -HYDROmorphone 0.5 MG/0.5 ML SYRINGE IVP PRN; -LACTATED RINGERS 1,000 ML IV SCH; -LIDOCAINE 1% (10MG/ML) FOR IV START INTRADERMA PRN; -MIDAZOLAM 2 MG/2 ML VIAL IV PRN; -ONDANSETRON 4 MG/2 ML VIAL IVP ONE; +SCOPOLAMINE 1 MG/72 HR PATCH TRANSDERM ONE; -metroNIDAZOLE-NS PMX 500 MG in SALINE 1 100ML.BAG IVPB PRN
[2025-02-02] MEDS: IV FLUID CONTINUATION 1,000 ML IV ONE ×2 (06:35→07:25)
[2025-02-02] MEDS: LACTATED RINGERS 1,000 ML IV SCH (06:36)
[2025-02-02] MEDS: ONDANSETRON 4 MG/2 ML VIAL IVP ONE (06:41)
[2025-02-02] MEDS: DEXAMETHASONE SOD PHOSPHATE 4 MG/ML 1 ML VIAL IV ONE (06:42)
[2025-02-02] MEDS: fentaNYL (PF) 50 MCG/ML 2 ML AMP IVP PRN (06:58)
[2025-02-02] MEDS: MIDAZOLAM 2 MG/2 ML VIAL IV PRN (06:58)
[2025-02-02] MEDS ORDERED: HYDROmorphone 0.5 MG/0.5 ML SYRINGE IVP PRN (07:00)
--- NOTE | 2025-02-02 07:12 | P.ANPRN ---
Procedure Note - Anesthesia - Nerve Block Performed Right Interscalene Single Time Out Performed: Yes Date of Procedure: 02/02/25 Procedure Start Time: 06:57 Procedure Stop Time: 07:03 Location of Patient: PreOp Indication: Acute Post-Operative Pain, Requested by Surgeon Sedation Type: Sedate with meaningful contact maintained Preparation: Sterile Prep Position: Supine Needle Types: Pajunk Needle Gauge: 21 Ultrasound used to visualize needle placement: Yes Ultrasound used to observe medication spread: Yes Injectate: 0.5% Ropivacaine (see comment for volume) (25 mL +4 mg dexamethasone) Blood Aspirated: No Pain Paresthesia on Injection Noted: No Resistance on Injection: Normal Image Stored and Saved: Yes Events: Uneventful and Well Tolerated
[2025-02-02] MEDS ORDERED: SUCCINYLCHOLINE CHLORIDE 200 MG/10 ML VIAL IV ONE (07:23)
[2025-02-02] MEDS ORDERED: PHENYLEPHRINE 10 MG/ML VIAL ONE (07:23)
[2025-02-02] MEDS ORDERED: KETOROLAC 15 MG/ML 1 ML VIAL ONE (07:23)
[2025-02-02] MEDS ORDERED: DEXAMETHASONE SOD PHOSPHATE 4 MG/ML 1 ML VIAL ONE (07:23)
[2025-02-02] MEDS ORDERED: fentaNYL (PF) 50 MCG/ML 2 ML AMP ONE (07:23)
[2025-02-02] MEDS ORDERED: PROPOFOL 10 MG/ML 20 ML VIAL IV ONE (07:23)
[2025-02-02] MEDS ORDERED: LIDOCAINE 1% INJ 10MG/ML (20 ML MDV) ONE (07:23)
[2025-02-02] MEDS ORDERED: ROPIVACAINE 5 MG/ML 30 ML VIAL ONE (07:23)
[2025-02-02] MEDS: EPINEPHrine (PF) 1 ML in SODIUM CHLORIDE 0.9% IRRIGATIO 3,000 ML IRRIGATION ONE ×4 (07:29)
[2025-02-02 08:40] VITALS: TEMP 97
--- NOTE | 2025-02-02 08:41 | P.OP ---
Date of Procedure: 02/02/25 Preoperative Diagnosis: Right shoulder impingement/superior labral tear Postoperative Diagnosis: Partial-thickness tear of the rotator cuff articular surface, type II superior labral tear Procedure(s) Performed: Right shoulder arthroscopic subacromial decompression/rotator cuff debridement/biceps tenotomy Anesthesia: jocelyn ALONZO Surgeon: Jose Carlos Schwarz News Correspondent #1: Arun Klein Estimated Blood Loss (ml): 10 Pathology: none sent Condition: stable Disposition: PACU Indications for Procedure: The patient is a 49-year-old male who presents with progressive right shoulder pain after previous injury despite conservative treatment. A discussion of the risks and benefits of operative intervention versus continued conservative measures was made with the patient. He opted to proceed with surgery. Operative risks include infection, neurovascular injury, development of blood clots, possible incomplete resolution of symptoms, possible development of cosmetic deformity, possible worsening symptoms and need for subsequent procedures was discussed. Informed consent was obtained. Operative Findings: As below Description of Procedure: The patient was brought to the operating room, and after induction of general anesthesia was placed in a beachchair position. A preoperative interscalene block was placed for postoperative analgesia. I examined the right shoulder. There was no gross block to passive motion or gross glenohumeral instability. The right upper extremity was prepped and draped in normal fashion. The bony outlines the acromion, distal clavicle, and coracoid process were outlined with a skin marker. The glenohumeral joint was inflated with 50 mL of saline utilizing a spinal needle from posterior approach. A posterior portal was made through a 5 mm skin incision 1 cm medial and inferior to the posterior lateral border time. A blunt trocar was used to easily into the joint. Diagnostic arthroscopy was performed. An anterior portal was made just lateral to the coracoid process entering the joint above the subscapularis tendon. The subscapularis tendon appeared to be intact. Anterior labrum was intact. The inferior recess was inspected. The posterior labrum was intact. A type II superior labral tear was noted with instability. The proximal biceps also appeared to be frayed and degenerative. This was released from the superior labrum with electrocautery and was allowed to retract to the bicipital groove. On inspection the rotator cuff, there was a partial-thickness tear involving anterior supraspinatus. This was debrided back to a stable base with a motorized shaver. Approximately 20% of the tendon thickness was involved. The remaining rotator cuff appeared to be intact. The arthroscope was placed into the subacromial space. A lateral portal was made 2 centimeters inferior to the anterior lateral border of the acromion. Significant bursal thickening was noted and was debrided with a motorized shaver. The soft tissue on the undersurface of the acromion was debrided with a motorized shaver and electrocautery clearly defining the anterior medial and lateral borders as well as the distal clavicle. An anterior inferior acromioplasty was performed with a motorized ana starting anterolateral, then extending this posteriorly, then extending this medially. I converted to a flat acromion and this was verified in the posterior and lateral viewing portals. The rotator cuff appeared to be intact on the bursal surface. The arthroscope was then removed. The portals were closed with simple 3-0 nylon sutures. A sterile dressing was applied in addition to a sling. The patient was then awoken from general anesthesia and transferred to recovery room in good condition. Blood loss was estimated at 10 mL. No complications were incurred. Sponge and needle counts were correct in the case. Arun CISNEROS assisted and the major components of the case to include arm positioning, decompression/debridement/tenotomy.
[2025-02-02] MEDS: hydrALAZINE HCL 20 MG/ML 1 ML VIAL IVP STA (09:00)
[2025-02-02 10:09] VITALS: BP 147/95; PULSE 75; RESP 16
== END 2025-02-02 10:18 | disposition home or self-care (01) ==
LOC: OR 06:00
PROVIDERS: ATTEND Orthopaedic Surgery
DX: M75.41 Impingement syndrome of right shoulder (principal); M75.111 Incomplete rotator cuff tear or rupture of right shoulder, not specified as traumatic; G89.18 Other acute postprocedural pain; F17.200 Nicotine dependence, unspecified, uncomplicated; Z79.899 Other long term (current) drug therapy
CPT/HCPCS: 64415; 29823; 29826; 29827; 29828; J2250; J0330; J0360; J1100; J2405; J0690; J2003; J3010; J2795; J1885; J2704; J2371; J0166